=== PATIENT | female | born 1995 | race Caucasian/White ===

== ENCOUNTER 2016-07-21 11:29 | Emergency (ER) | payer OTHER ==
[~2016-07-21] VITALS: Ht 175.3 cm; Wt 119.3 kg
[~2016-07-21 11:29] MED LIST: CIPRO500 MG PO; IBUPROFEN800 MG PO; LABETALOL HCL100 MG PO; OXAYDO5 MG PO; SERTRALINE HCL100 MG PO; TESSALON PERLE100 MG PO; TYLENOL COLD M240 ML PO; TYLENOL EXTRA500 MG PO; VITAFOL-OB+DHA1 EACH PO; ZOFRAN ODT4 MG PO; ZYRTEC10 M2 PO
[2016-07-21] MEDS ORDERED: TRAMADOL HCL50 MG PO (12:15)
[2016-07-21] MEDS ORDERED: FLEXERIL10 MG PO (12:15)
[2016-07-21] MEDS ORDERED: NAPROSYN500 MG PO (12:15)
[2016-07-21 12:36] VITALS: BP 119/82
== END 2016-07-21 12:36 | disposition home or self-care (01) ==
LOC: EME 11:29 → EXP 11:29
DX: S46.812A Strain of other muscles, fascia and tendons at shoulder and upper arm level, left arm, initial encounter (principal); X50.3XXA Overexertion from repetitive movements, initial encounter
CPT/HCPCS: 99281; 99283; J1885

== ENCOUNTER 2016-12-02 23:32 | Emergency (ER) | payer OTHER ==
[~2016-12-02] VITALS: Ht 175.3 cm; Wt 121.3 kg
[~2016-12-02 23:32] MED LIST changes: +FLEXERIL10 MG PO; +NAPROSYN500 MG PO; +TRAMADOL HCL50 MG PO
[2016-12-03 00:52] LABS: HEMATOCRIT 40.2 % (36.0-46.0); MCH 30.3 PG (29.0-34.0); MCHC 34.8 G/DL (30.0-36.0); MEAN PLAT.VOLUME 9.7 uM^3 (9.5-12.4); PLATELET COUNT 318 K/uL (156-360); RBC DIS.WIDTH-CV 11.9 % (11.8-14.6); RBC DIS.WIDTH-SD 37.8 % (39-53); RED BLOOD COUNT 4.62 M/uL (3.80-5.20); WHITE BLOOD COUNT 9.4 K/uL (4.1-10.2)
[2016-12-03 00:55] LABS: ADD MIUA? YES; BILIRUBIN NEGATIVE; BLOOD NEGATIVE; GLUCOSE (STRIP) NEGATIVE; KETONES NEGATIVE; LEUKOCYTES MODERATE; NITRITE NEGATIVE; PROTEIN (STRIP) 30; SPECIFIC GRAVITY 1.032 (1.000-1.030); UROBILINOGEN 0.2 MG/DL (0.2-1.0)
[2016-12-03 00:56] LABS: COLOR YELLOW ((YELLOW))
[2016-12-03 01:00] LABS: CHLORIDE 108 mEq/L (99-109); POTASSIUM 3.8 mEq/L (3.7-5.4); SODIUM 142 mEq/L (136-147)
[2016-12-03 01:02] LABS: GLUCOSE 96 mg/dL (70-99)
[2016-12-03 01:03] LABS: ANION GAP 9 MEQ/L (2-14)
[2016-12-03 01:04] LABS: TOTAL BILIRUBIN 1.2 mg/dL (0.0-1.0)
[2016-12-03 01:06] LABS: ALKALINE PHOSPHATASE 142 IU/L (3-129); GFR ESTIMATE (CALCULATED) > 59 mL/min/
[2016-12-03 01:07] LABS: UREA NITROGEN (BUN) 13 mg/dL (9-23)
[2016-12-03 01:09] LABS: LIPASE 27 U/L (1.0-51.0)
[2016-12-03 01:17] LABS: QUANTITATIVE HCG < 4.0 MIU/ML
[2016-12-03 01:42] LABS: BACTERIA 2+ /HPF; CASTS NONE SEEN /LPF; CRYSTALS PRESENT; EPITHELIAL CELLS 2+ /HPF; MUCUS NONE SEEN /LPF; RED BLOOD CELLS 0-5 /HPF (0-5); UCUL ADDED? YES; WHITE BLOOD CELLS 30-40 /HPF (0-5)
[2016-12-03 01:43] LABS: CALCIUM OXALATE CRYSTALS 1+ /HPF
[2016-12-03] MEDS ORDERED: ZOFRAN4 MG PO (03:45)
[2016-12-03] MEDS ORDERED: ZANTAC150 MG PO (03:45)
[2016-12-03] MEDS ORDERED: BENTYL10 MG PO (03:45)
[2016-12-03 04:06] VITALS: BP 120/75
== END 2016-12-03 04:07 | disposition home or self-care (01) ==
LOC: EME 23:32
DX: R10.10 Upper abdominal pain, unspecified (principal); F32.9 Major depressive disorder, single episode, unspecified; Z88.1 Allergy status to other antibiotic agents; Z88.2 Allergy status to sulfonamides
CPT/HCPCS: 74177; 80053; 81003; 83690; 84702; 85027; 87086; 99281; 99284; J2270; J2405; J7030; S0028

== ENCOUNTER → 2017-01-10 | Outpatient (CLI) | payer OTHER ==
[~2017-01-10] VITALS: Ht 171.4 cm; Wt 121.1 kg
[~2017-01-10] MED LIST changes: +BENTYL10 MG PO; +BUSPAR10 MG PO; +ZANTAC150 MG PO; +ZOFRAN4 MG PO
== END | disposition home or self-care (01) ==
LOC: AMB 12:28
DX: R10.13 Epigastric pain (principal); R19.7 Diarrhea, unspecified; J45.909 Unspecified asthma, uncomplicated; E66.9 Obesity, unspecified; Z68.41 Body mass index [BMI] 40.0-44.9, adult; Z87.891 Personal history of nicotine dependence; Z88.0 Allergy status to penicillin; Z88.2 Allergy status to sulfonamides
CPT/HCPCS: 88305; 88342 TC; J2250; J3010